=== PATIENT | female | born 1980 | race Caucasian/White ===

== ENCOUNTER 2018-03-26 13:42 | Emergency (ER) | payer OTHER ==
[2018-03-26 13:49] VITALS: BMI 20.7
[2018-03-26 13:54] VITALS: RESP 18; O2SAT 100
[2018-03-26] MEDS ORDERED: Sodium Chloride 0.9% 1,000 ML IV ONE (14:00)
[2018-03-26] MEDS ORDERED: DiphenhydrAMINE 50 mg/ml Inj IVP STA (14:00)
[2018-03-26] MEDS ORDERED: DiphenhydrAMINE 50 mg/ml Inj ONE (14:12)
[2018-03-26] MEDS ORDERED: Sodium Chloride 0.9% 1,000 ML ONE (14:12)
[2018-03-26 14:21] LABS: BASO % 0.3 % (0.0-2.0); EOS # 0.2 K/uL (0.0-0.7); EOS % 2.1 % (0.0-4.0); HEMOGLOBIN 13.9 g/dL (11.0-16.0); LYMPH # 2.8 K/uL (1.0-4.3); LYMPH % 24.2 % (20.0-40.0); MEAN CELL VOLUME 85.3 fL (81.0-99.0); MEAN CORPUSCULAR HEMOGLOBIN 28.3 pg (27.0-31.0); MEAN CORPUSCULAR HGB CONC 33.2 g/dL (33.0-37.0); MEAN PLATELET VOLUME 8.7 fL (7.2-11.7); MONO # 0.7 K/uL (0.0-0.8); MONO % 6.3 % (0.0-10.0); NEUT # 7.7 K/uL (1.8-7.0); NEUT % 67.1 % (50.0-75.0); NRBC % 0.1 % (0.0-2.0); RBC 4.9 Mil/uL (3.80-5.20); RED CELL DISTRIBUTION WIDTH 13.9 % (11.5-14.5); WHITE BLOOD COUNT 11.5 K/uL (4.8-10.8)
--- NOTE | 2018-03-26 14:41 | C.PDOC ---
History Of Present Illness 37 y/o female with Hx of Known formaldehyde allergy presents to ED for complaints of swelling to forehead which spread to left eye and itchy scalp that began 3 days ago after she used a hair product that contained formaldehyde. Patient states she did not use any medications or cream for the swelling, but she went to a clinic in [place] today and she was told to come to the ER. Denies fever, congestion, sinus pressure, or any other physical complaints. Time Seen by Provider: 03/26/18 13:56 Chief Complaint (Nursing): Allergic Reaction History Per: Patient History/Exam Limitations: no limitations Onset/Duration Of Symptoms: Days Current Symptoms Are (Timing): Still Present Possible Cause: Other (Hair product ) Associated Symptoms: Swelling Home/EMS Treatment: None Recent travel outside of the [place]: No Past Medical History Reviewed: Historical Data, Nursing Documentation, Vital Signs Vital Signs: Last Vital Signs Temp 99.6 F 03/26/18 15:55 Pulse 73 03/26/18 15:55 Resp 18 03/26/18 15:55 BP 123/86 03/26/18 15:55 Pulse Ox 100 03/26/18 15:55 - Medical History PMH: No Chronic Diseases Surgical History: Family History: States: No Known Family Hx - Social History Hx Alcohol Use: Yes Hx Substance Use: No - Immunization History Hx Tetanus Toxoid Vaccination: No Hx Influenza Vaccination: No Hx Pneumococcal Vaccination: No Review Of Systems Constitutional: Negative for: Fever, Chills Gastrointestinal: Negative for: Nausea, Vomiting, Diarrhea Skin: Positive for: Other (Swelling to forhead and ). Negative for: Rash Neurological: Negative for: Weakness, Numbness Physical Exam - Physical Exam Appears: Non-toxic, No Acute Distress Skin: Rash (Vesicular rash on left frontal scalp), Other (Minimal erythema behind ear and left side of neck ) Head: Atraumatic, Normacephalic Eye(s): left: Other (Periorbital swelling extending to forehead; no erythema ) Ear(s): Bilateral: Normal Oral Mucosa: Moist Throat: Normal, No Erythema, No Exudate, No Drooling, No Mass Neck: Normal ROM, Supple, Other Chest: Symmetrical, No Tenderness Cardiovascular: Rhythm Regular, No Murmur Respiratory: Normal Breath Sounds, No Decreased Breath Sounds, No Rales, No Rhonchi, No Stridor, No Wheezing Gastrointestinal/Abdominal: Soft, No Tenderness, No Distention Extremity: Normal ROM, No Deformity, No Swelling Extremity: Bilateral: Atraumatic, Normal Color And Temperature, Normal ROM Neurological/Psych: Oriented x3, Normal Speech, Other (No focal deficits ) Gait: Steady ED Course And Treatment - Laboratory Results Result Diagrams: 03/26/18 14:18 03/26/18 14:18 O2 Sat by Pulse Oximetry: 100 (RA) Pulse Ox Interpretation: Normal Medical Decision Making Medical Decision Making: Administered Benadryl, Pepcid, IV fluids, and SOLU-Medrol. Ordered blood work. Patient reports that symptoms started shortly after using a hair straightening product with formaldehyde in it, which she has a known allergy to. However given L periorbital swelling, will get labs to check for leukocytosis, although symptoms are likely due to an an allergic reaction rather than preseptal/ orbital cellulitis. Patient is afebrile and has no other complaints. Swelling improved after medications were given. Patient with very minimally elevated WBC. Patient states that she feels better and can now open her left eye. Stable for discharge home. Rx written for 5 day course of prednisone. Disposition - Disposition Disposition: HOME/ ROUTINE Disposition Time: 16:21 Condition: GOOD Additional Instructions: GRZEGORZ BEAN, thank you for letting us take care of you today. Your provider was Eliane Moreland MD and you were treated for SENT BY PMD. The emergency medical care you received today was directed at your acute symptoms. If you were prescribed any medication, please fill it and take as directed. It may take several days for your symptoms to resolve. Return to the Emergency Department if your symptoms worsen, do not improve, or if you have any other problems. Please contact your doctor or call one of the physicians/clinics you have been referred to that are listed on the Patient Visit Information form that is included in your discharge packet. Bring any paperwork you were given at discharge with you along with any medications you are taking to your follow up visit. Our treatment cannot replace ongoing medical care by a primary care provider outside of the emergency department. Thank you for allowing the [facility] team to be part of your care today. If you had an X-Ray or CT scan: A Radiologist will review the ED reading if any change in treatment is needed we will contact you. If you had a blood, urine, or wound culture: It will take several days for the results, if any change in treatment is needed we will contact you. If you had an STI test: It will take 48 hours for the results. Please call after 1 week if you have not heard back. Prescriptions: predniSONE [predniSONE Tab] 40 mg PO DAILY 5 Days tab Instructions: Dermatitis Forms: [employer] (Chinese) - Clinical Impression Clinical Impression: Contact dermatitis - Scribe Statement The provider has reviewed the documentation as recorded by the Zoilaibjeremías Rodriguez All medical record entries made by the Zoilaibjeremías were at my direction and personally dictated by me. I have reviewed the chart and agree that the record accurately reflects my personal performance of the history, physical exam, medical decision making, and the department course for this patient. I have also personally directed, reviewed, and agree with the discharge instructions and disposition.
[2018-03-26 15:32] LABS: BLOOD UREA NITROGEN 9 mg/dL (7-17); CALCIUM 9.6 mg/dl (8.6-10.4); GFR NON-AFRICAN AMERICAN > 60
[2018-03-26 15:55] VITALS: BP 123/86; PULSE 73; TEMP 99.6
== END 2018-03-26 16:21 | disposition home or self-care (01) ==
LOC: C.ER 13:42
DX: L25.9 Unspecified contact dermatitis, unspecified cause (principal)
CPT/HCPCS: 80048; 85025; 96361; 96374; 96375; 99284; J1200; J2930; J7030